=== PATIENT | male | born 1950 | race Caucasian/White ===

== ENCOUNTER 2018-03-27 11:46 | Day surgery (SDC) | payer MEDICARE, BC ==
[~2018-03-27] VITALS: Ht 182.9 cm; Wt 90.7 kg
[2018-03-27] VITALS (7 sets, daily range): BP systolic 132–163; BP diastolic 65–86
[~2018-03-27 11:46] MED LIST: Cefepime HCl 1 GM in D5W 55 ML IVPB ONE
[2018-03-27] MEDS ORDERED: TAMSULOSIN HCL0.4 MG ORAL (12:36)
[2018-03-27] MEDS ORDERED: SIMVASTATIN5 MG ORAL (12:36)
[2018-03-27] MEDS ORDERED: ASPIRIN81 MG ORAL (12:36)
[2018-03-27] MEDS ORDERED: LISINOPRIL2.5 MG ORAL (12:36)
[2018-03-27] MEDS ORDERED: LANTUS SOL100 UNIT/1 SUBQ (12:36)
[2018-03-27] MEDS ORDERED: Iothalamate Meglumine 60% 30ML INJ ONE (12:52)
[2018-03-27] MEDS ORDERED: LR 1000ml ONE (13:00)
[2018-03-27] MEDS ORDERED: Cefepime 1gm vial ONE (13:06)
[2018-03-27] MEDS ORDERED: fentaNYL 100 mcg/2 mL IV PRN ×2 (13:15→15:45)
--- NOTE | 2018-03-27 13:16 | Urology Progress Note ---
Assessment/Plan Assessment/Plan bladder calculi left ureteral calculi hydro BPH proceed no guarantees given heavy stone burden, may eventually need mult procedures pt understands will most likely go home with hernandez Subjective Allergies: Coded Allergies: No Known Allergies (Unverified , 03/26/18) Subjective plan cysto today Objective Last 24 Hour Vital Signs Date Time Temp Pulse Resp B/P (MAP) Pulse Ox O2 Delivery O2 Flow Rate FiO2 03/27/18 12:37 Room Air 03/27/18 12:31 97.6 88 18 148/86 (106) 96 97.6 Height (Feet): 6 Weight (Pounds): 200 Objective exam stable preop labs and imaging noted LYNDSAY GARDNER Mar 27, 2018 13:16
--- NOTE | 2018-03-27 13:16 | Anethesia Preoperative Eval ---
Anesthesia Pre-op PMH/ROS General Date of Evaluation: Mar 27, 2018 Time of Evaluation: 13:15 Anesthesiologist: anna ASA Score: ASA 3 Mallampati Score Class I : Soft palate, uvula, fauces, pillars visible Class II: Soft palate, uvula, fauces visible Class III: Soft palate, base of uvula visible Class IV: Only hard plate visible Mallampati Classification: Class III Surgeon: bridgette Diagnosis: renal calculus Surgical Procedure: stent Anesthesia History: none Social History: smoking, current smoker Family History: no anesthesia problems Allergies: Coded Allergies: No Known Allergies (Unverified , 03/26/18) Medications: see eMAR Past Medical History Cardiovascular: Reports: HTN Pulmonary: Denies: asthma, COPD, ALBARO, other Gastrointestinal/Genitourinary: Reports: other - renal calculus; Denies: GERD, CRI, ESRD Neurologic/Psychiatric: Denies: dementia, CVA, depression/anxiety, TIA, other Endocrine: Reports: DM HEENT: Denies: cataract (L), cataract (R), glaucoma, GRINDSTONE (L), GRINDSTONE (R), other Hematology/Immune: Denies: anemia, DVT, bleeding disorder, other Musculoskeletal/Integumentary: Reports: OA; Denies: RA, DJD, DDD, edema, other PSxH Narrative: renal stents Anesthesia Pre-op Phys. Exam Physician Exam Last Vital Signs Date Time Temp Pulse Resp B/P (MAP) Pulse Ox O2 Delivery O2 Flow Rate FiO2 03/27/18 12:37 Room Air 03/27/18 12:31 97.6 88 18 148/86 (106) 96 97.6 Constitutional: NAD Neurologic: CN 2-12 intact Cardiovascular: RRR Respiratory: CTA Gastrointestinal: S/NT/ND Airway Exam Mallampati Classification 3 Mallampati Score: Class II MO: full Neck: normal ROM: full Dentures: no upper, no lower Anesthesia Pre-op A/P Labs Accucheck 279 Studies Pre-op Studies: EKG - sr Risk Assessment & Plan Assessment: denies cp; sob Plan: general LMA Status Change Before Surgery: No Diamante Romo CRNA Mar 27, 2018 13:16
--- NOTE | 2018-03-27 13:18 | Pre-Procedure Note/Attestation ---
Pre-Procedure Note/Attestation Complete Prior to Procedure Planned Procedure: left Procedure Narrative: cysto, laser cystolitholapaxy, left ureteroscopy, lase litho, ureteral stent Indications for Procedure Pre-Operative Diagnosis: bladder calculi, left ureteral calculi, hydro Attestation I attest that I discussed the nature of the procedure; its benefits; risks and complications; and alternatives (and the risks and benefits of such alternatives ), prior to the procedure, with the patient (or the patient's legal sales representative cash registers). I attest that, if there was a reasonable possibility of needing a blood transfusion, the patient (or the patient's legal sales representative cash registers) was given the [place] [facility] [employer] [facility] standardized written summary, pursuant to the [place] Blood Safety Act ([place] Health and Safety Code # 1645, as amended). I attest that I re-evaluated the patient just prior to the surgery and that there has been no change in the patient's H&P, except as documented below: n/a LYNDSAY GARDNER Mar 27, 2018 13:18
[2018-03-27] MEDS ORDERED: Propofol 200mg/20ml IV ONE (13:44)
[2018-03-27] MEDS ORDERED: Lidocaine 1% MPF 10mg/ml 5ml ONE (13:44)
[2018-03-27] MEDS ORDERED: Metoclopramide 10mg/2ml Inj ONE (13:44)
--- NOTE | 2018-03-27 15:26 | Brief Operative Note ---
Immediate Post Operative Note Operative Note Pre-op Diagnosis: bladder calculi, left ureteral calculi, hydro Procedure: cysto, laser cystolitholapaxy, left ureteroscopy, laser litho, retrograde, ureteral stent Post-op Diagnosis: same as pre-op Findings: other - large bladder calculi cleared, mult left ureteral stones impacted Surgeon: bridgette Anesthesiologist: john Anesthesia: general Specimen: yes Complications: none Condition: stable Fluids: NS Estimated Blood Loss: minimal Implant(s) used?: Yes - 6f x 28 cm left ureteral JJ stent LYNDSAY GARDNER Mar 27, 2018 15:26
--- NOTE | 2018-03-27 15:33 | Immediate Post-Op Evaluation ---
Immediate Post-Op Evalulation Immediate Post-Op Evalulation Procedure: uterostent; cystoscopy Date of Evaluation: Mar 27, 2018 Time of Evaluation: 15:33 IV Fluids: 500 Blood Pressure Systolic: 158 Blood Pressure Diastolic: 73 Pulse Rate: 78 Respiratory Rate: 14 O2 Sat by Pulse Oximetry: 100 Temperature (Fahrenheit): 98.4 Nausea: No Vomiting: No Complications none Patient Status: awake, reacts, patent Hydration Status: adequate Drug: cefipime Given Within 1 Hr of Incision: Yes Time Given: 13:20 Diamante Romo CRNA Mar 27, 2018 15:33
--- NOTE | 2018-03-27 16:34 | Diagnostic Imaging Report ---
INDICATION: Pain, intraoperative, left flank pain and hematuria, left ureteral calculus on recent CT TECHNIQUE: Intraoperative imaging Fluoroscopy time: 171 seconds Total dose: 45.43 mGy Total number of images: 11 COMPARISON: None FINDINGS: Intraoperative images demonstrate wire placement and opacification of the left ureter and left renal collecting system, subsequently placement of a nephroureteral stent IMPRESSION: Intraoperative imaging, as described
--- NOTE | 2018-03-27 19:15 | Operative Note - Dictated ---
DATE OF OPERATION: 03/27/2018 PREOPERATIVE DIAGNOSES: Multiple bladder calculi as well as multiple left ureteral calculi with history of hydronephrosis and renal colic, BPH. POSTOPERATIVE DIAGNOSES: Multiple bladder calculi as well as multiple left ureteral calculi with history of hydronephrosis and renal colic, BPH. PROCEDURE PERFORMED: Cystoscopy, urethral calibration with laser cystolitholapaxy, left ureteroscopy, laser lithotripsy, retrograde pyelogram, placement of double-J stent, and laser fulguration of prostatic median lobe. OPERATING SURGEON: Joye Frazier M.D. ANESTHESIA: Diamante Romo CRNA. ANESTHESIA: General. INDICATION FOR PROCEDURE: This is a pleasant 67-year-old male who has history of BPH and history of bladder calculi that were treated a number of years ago. He was recently seen in the emergency room because of left-sided flank pain and was found to have renal colic secondary to multiple stones in the left ureter and hydronephrosis as well as multiple large stones in the bladder. The patient was on Flomax, however, he has been having continued flank pain and required to have surgical intervention for his stones as soon as possible and as such, he was scheduled for the above procedure on somewhat of an urgent basis. Possible risks and complications of bleeding, infection, anesthesia, damage to the urethra or prostate or bladder or ureter, and need for further surgery were discussed. This specifically turned up because of his heavy stone burden including multiple stones in the ureter as well as the bladder and he may ultimately need multiple procedures to completely clearly everything, however, I will try to take care of all the stones today in one sitting. Again, all of his questions were answered. FINDINGS: The patient had multiple large stones in the bladder, all of which were cleared. He also had multiple stones in the left ureter with one that was completely impacted into the wall of the ureter and these were also cleared. Stent was placed. PROCEDURE IN DETAIL: Informed consent was obtained from the patient. The patient was brought to the operative room and then placed in supine position. After successful general anesthesia was induced, the patient was then placed in modified dorsal lithotomy position. The genital area was then prepped and draped in usual sterile fashion. Preoperative IV antibiotics were administered. Time-out was performed. At this point, this patient's distal urethra and meatus were gently dilated. Cystoscopy was then performed using a 25-Chilean sheath. Urethra showed some bands. Prostate was moderately to severely obstructive about 2.5 cm with significantly prominent median lobe that was friable. I was able to enter the bladder where he had trabeculations. I did not see any tumors, however, he had multiple bladder stones some of which were small, but there were two that were at least 2 cm each. At this point, using the 1000 micron holmium laser fiber, I was able to break all the bladder stones into small pieces and irrigate them out until the bladder was clear. These stones were sent for specimen. At this point, I inspected the bladder. The mucosa was intact. Both ureteral orifices were intact. I identified the left ureteral orifice. It was cannulated with an open-ended catheter. An angled Glidewire was then passed up. Significant resistance was noted at the middle of the ureter at the location of the stone and I believe the stone was impacted, and with some manipulation, I was able to negotiate the wire up into the kidney so that it was a safety wire. Rigid ureteroscopy was then performed. The distal ureter was somewhat stenotic. I had to pass a second wire and passed the scope over the wire to get to the stone. He had multiple stones in the ureter. The largest one was severely impacted into the wall. It was . I had had to gently disimpact it using the 200 micron holmium laser fiber at which time, I saw that it was a relatively large stone and it was with jagged edges. This was broken into small pieces that were passable. I went along the entire length of the ureter. All the stone fragments appeared to be small and powder, and passable. Contrast was injected. There was [id number] dilatation. The ureteroscope was taken out with safety wire as well as the cystoscope and a 6-Chilean x 28 cm double-J stent was then passed into the collecting system under fluoroscopic and visual guidance. It appeared to be in good position with a good curl proximally and distally. A small string was left at the distal end. All stone fragments were evacuated. It should be noted that during the laser part of the procedure, there was some brisk bleeding from the surface of the prostate, which was controlled with vaporization of the median lobe with the laser tip. Again at this point, bleeding was minimal. I then placed a 20-Chilean Mitchell catheter and this irrigated well. The patient was awakened and taken to the recovery room in stable condition. Blood loss was minimal. No complication. Joey Frazier M.D. DR: Pedro JOB#: [id number] CC:
--- NOTE | 2018-03-29 19:02 | Cardiology Report ---
APPROVED REPORT EKG Measurement Heart [id number] MT [id number] [id number] Normal sinus rhythm Septal infarct, age undetermined Abnormal ECG
[2018-03-30 07:00] VITALS: BP 160/70
--- NOTE | 2018-03-30 07:00 | 48 Hour Post Anesthesia Eval ---
Post Anesthesia Evaluation Procedure: uterostent; cystoscopy Date of Evaluation: Mar 30, 2018 Time of Evaluation: 06:59 Blood Pressure Systolic: 160 0: 70 Pulse Rate: 75 Respiratory Rate: 14 O2 Sat by Pulse Oximetry: 99 Airway: patent Nausea: No Vomiting: No Hydration Status: adequate Cardiopulmonary Status: stable Mental Status/LOC: patient returned to baseline Follow-up Care/Observations: na Post-Anesthesia Complications: none Follow-up care needed: N/A Diamante Romo CRNA Mar 30, 2018 07:00
== END 2018-03-27 17:00 | disposition home or self-care (01) ==
LOC: SUR 11:46
DX: N20.1 Calculus of ureter (principal); N21.0 Calculus in bladder; N40.0 Benign prostatic hyperplasia without lower urinary tract symptoms; E11.9 Type 2 diabetes mellitus without complications; Z79.4 Long term (current) use of insulin; I10 Essential (primary) hypertension; M19.90 Unspecified osteoarthritis, unspecified site; F17.200 Nicotine dependence, unspecified, uncomplicated
CPT/HCPCS: 52317; 52356; 52648; 74420; 76000; 82962; 93005; J0692; J2405; J2704; J2765; J3010; Q9961